=== PATIENT | male | born 1975 | race Caucasian/White ===

== ENCOUNTER 2019-12-20 22:47 | Emergency (ER) | payer OTHER ==
[~2019-12-20] VITALS: Ht 185.4 cm; Wt 161.4 kg
--- NOTE | 2019-12-20 23:06 | PHYS DOC ---
Adult General Chief Complaint Chief Complaint: SHOULDER INJURY [facility] HPI 44 year-old male presents emergency Department complaints of left shoulder pain. Patient states he felt work and some gasoline slipping and hitting the floor with his elbow felt his shoulder was pushed upward. He is concerned possible dislocation. He has limited range of motion, with pain secondary to AB duction. He is unable to AB duct greater than 45 laterally. Patient denies any numbness or tingling on exam. Movements make pain worse. All other ROS negative unless documented in HPI Review of Systems Review of Systems See Above Physical Exam Physical Exam See Above Constitutional: Well developed, well nourished, no acute distress, non-toxic appearance. [] Cardiovascular:Heart rate regular rhythm, no murmur [] Lungs & Thorax: Bilateral breath sounds clear to auscultation [] Skin: Warm, dry, no erythema, no rash. [] Extremities: mild tender to palpation to left AC, no step offs appreciated, limited ROM 2/2 pain, unable to abduct left shoulder > 45, + cheek's test, no edema. [] Neurologic: Alert and oriented X 3, no focal deficits noted. [] Psychologic: Affect normal, judgement normal, mood normal. [] Current Patient Data Vital Signs Vital Signs Date Time Temp Pulse Resp B/P (MAP) Pulse Ox O2 Delivery O2 Flow Rate FiO2 12/20/19 23:00 98.2 96 20 177/99 (125) 97 Room Air 98.2 EKG EKG [] Radiology/Procedures Radiology/Procedures [facility] [address] [place], [place] [id number] IMAGING REPORT Signed PATIENT: KATELYN CASTILLO ACCOUNT: [id number] : 1975 LOCATION: ER AGE: 44 SEX: M EXAM STATUS: REG ER ORD. PHYSICIAN: HUMAIRA LOPEZ MD REASON: fall at work on elbow, more pain to left shoulder unable to abduct >45deg PROCEDURE: ELBOW LEFT 2V 3 views of left shoulder and 2 views left elbow dated 12/20/2019. No comparison available. CLINICAL INDICATION: Pain after fall. FINDINGS: 3 views of left shoulder show normal bony alignment. No displaced fracture. No acute osseous or articular abnormality. Mild to moderate hypertrophic change of the AC joint. 2 views left elbow show normal bony alignment. No displaced fracture. No acute osseous or articular abnormality. No fat pad elevation to suggest joint effusion. IMPRESSION: No acute findings. Electronically signed by: Dwayne Chadwick MD (12/20/2019 11:28 PM) [id number] DICTATED and SIGNED BY: DWAYNE CHADWICK MD DATE: 12/20/192327 [] IMAGING REPORT Signed PATIENT: KATELYN CASTILLO ACCOUNT: [id number] : 1975 LOCATION: ER AGE: 44 SEX: M EXAM STATUS: REG ER ORD. PHYSICIAN: HUMAIRA LOPEZ MD REASON: fall at work on elbow, more pain to left shoulder unable to abduct >45deg PROCEDURE: SHOULDER 2+V LEFT 3 views of left shoulder and 2 views left elbow dated 12/20/2019. No comparison available. CLINICAL INDICATION: Pain after fall. FINDINGS: 3 views of left shoulder show normal bony alignment. No displaced fracture. No acute osseous or articular abnormality. Mild to moderate hypertrophic change of the AC joint. 2 views left elbow show normal bony alignment. No displaced fracture. No acute osseous or articular abnormality. No fat pad elevation to suggest joint effusion. IMPRESSION: No acute findings. Electronically signed by: Dwayne Chadwick MD (12/20/2019 11:28 PM) [id number] DICTATED and SIGNED BY: DWAYNE CHADWICK MD DATE: 12/20/192327 Course & Med Decision Making Course & Med Decision Making Pertinent Labs and Imaging studies reviewed. (See chart for details) []44 year-old male presents emergency Department complaints of left shoulder pain. Patient states he felt work and some gasoline slipping and hitting the floor with his elbow felt his shoulder was pushed upward. He is concerned possible dislocation. He has limited range of motion, with pain secondary to AB duction. He is unable to AB duct greater than 45 laterally. Patient denies any numbness or tingling on exam. Movements make pain worse. Dragon Disclaimer Dragon Disclaimer This electronic medical record was generated, in whole or in part, using a voice recognition dictation system. Departure Departure Impression: Primary Impression: Fall Additional Impression: Shoulder pain, left Disposition: 01 HOME, SELF-CARE Condition: STABLE Referrals: MATT SEWELL MD (PCP) Patient Instructions: Shoulder Pain, [id number] Additional Instructions: Recommend follow up with PCP Ortho referral for possible MRI if no improvement Injury has likely affected rotator cuff Tylenol/Motrin as needed for pain Return to the ER with numbness or tingling Scripts Cyclobenzaprine Hcl (CYCLOBENZAPRINE HCL) 5 Mg Tablet 1 TAB PO TID PRN for MUSCLE PAIN, #10 TAB Prov: HUMAIRA LOPEZ MD 12/20/19 Problem Qualifiers Primary Impression: Fall Encounter type: initial encounter Qualified Codes: W19.XXXA - Unspecified fall, initial encounter Additional Impression: Shoulder pain, left Chronicity: acute Qualified Codes: M25.512 - Pain in left shoulder HUMAIRA LOPEZ MD Dec 20, 2019 23:06
--- NOTE | 2019-12-20 23:31 | RAD ---
3 views of left shoulder and 2 views left elbow dated 12/20/2019. No comparison available. CLINICAL INDICATION: Pain after fall. FINDINGS: 3 views of left shoulder show normal bony alignment. No displaced fracture. No acute osseous or articular abnormality. Mild to moderate hypertrophic change of the AC joint. 2 views left elbow show normal bony alignment. No displaced fracture. No acute osseous or articular abnormality. No fat pad elevation to suggest joint effusion. IMPRESSION: No acute findings. Electronically signed by: Dwayne Chadwick MD (12/20/2019 11:28 PM) [id number]
[2019-12-20] MEDS ORDERED: CYCL5TAB PO (23:37)
[2019-12-20 23:43] VITALS: BP 180/87
== END 2019-12-20 23:45 | disposition home or self-care (01) ==
LOC: ER 22:47
DX: M25.512 Pain in left shoulder (principal); G89.11 Acute pain due to trauma; W18.09XA Striking against other object with subsequent fall, initial encounter; Y93.89 Activity, other specified; Y92.69 Other specified industrial and construction area as the place of occurrence of the external cause; Y99.0 Civilian activity done for income or pay
CPT/HCPCS: 73030; 73070; 99284

== ENCOUNTER → 2019-12-27 | Outpatient (CLI) | payer OTHER ==
[2019-12-20 23:43] VITALS: BP 180/87
[~2019-12-27] MED LIST: CYCL5TAB PO
--- NOTE | 2019-12-27 15:47 | KCIC ---
MR of the left shoulder HISTORY: Left shoulder rotator cuff tendon insufficiency. Pain after a fall 2 days ago. TECHNIQUE: Routine multiplanar sequences are obtained. FINDINGS: Acromioclavicular joint is degenerative. Undersurface osteophytes are identified. Complete full-thickness rupture of the supraspinatus and infraspinatus tendon with retraction. Retraction measures about 4.5 cm. Intramuscular edema within the infraspinatus compatible with low-grade strain. Subscapularis tendinosis with mild partial tearing. Mild fluid in the subdeltoid bursa. Mild fluid in the glenohumeral joint. Glenohumeral joint DJD. Heterogeneous signal within the superior labrum compatible with degeneration or degenerative tearing. The biceps tendon is thick and heterogeneous compatible with tendinosis. No acute fracture. No aggressive bone destruction. IMPRESSION: 1. Large rotator cuff tear. Complete supraspinatus infraspinatus tendon rupture with retraction and acute low-grade intramuscular strain. Partial subscapularis tendon tear. 2. Superior labral degeneration or degenerative tearing. 3. Biceps tendinosis. Electronically signed by: Dwayne Sevilla MD (12/27/2019 3:44 PM) [id number]
== END | disposition home or self-care (01) ==
LOC: KCIC MRI 13:43
PROVIDERS: ATTEND Physician Assistant Medical
DX: S46.012A Strain of muscle(s) and tendon(s) of the rotator cuff of left shoulder, initial encounter (principal); M75.22 Bicipital tendinitis, left shoulder; M19.012 Primary osteoarthritis, left shoulder; X58.XXXA Exposure to other specified factors, initial encounter; Y93.89 Activity, other specified; Y92.89 Other specified places as the place of occurrence of the external cause; Y99.8 Other external cause status
CPT/HCPCS: 73221